=== PATIENT | male | born 1960 | race Caucasian/White ===

== ENCOUNTER 2020-11-22 14:23 | Emergency (ER) | payer OTHER ==
[2020-11-22 14:34] VITALS: BP 139/93; PULSE 86; RESP 16; TEMP 98.4
[2020-11-22] MEDS ORDERED: OFLOXACIN 0.3% OPHTH DROPS 5 ML BOTTLE RIGHT EAR STA (14:56)
--- NOTE | 2020-11-22 15:00 | ED ---
General Adult HPI - General Source: patient, RN notes reviewed Mode of arrival: ambulatory Limitations: no limitations <James Monroe - Last Filed: 11/22/20 15:14> <Jessica Acharya - Last Filed: 11/24/20 23:01> - General Chief complaint: ENT Stated complaint: R Ear Pain - History of Present Illness Initial comments: 60-year-old male with a past medical history of hyperlipidemia, seizure disorder presents to the emergency department for a chief complaint of "plugged right ear." Patient states his right ear has been plugged for about one month. States sometimes he feels a pop and will open up however then closes again. No significant pain. [facility] who [facility] and put him on an oral antibiotic that starts with a C. Patient thinks it was Keflex. Patient states that it did not seem to help. He [facility] but is awaiting a referral. Patient denies drainage from the ear. Denies fevers or chills. Denies pain in the mastoid area. Denies fevers or severe headache. No history of diabetes. Patient has no other complaints at this time including shortness of breath, chest pain, abdominal pain, nausea or vomiting, headache, or visual changes. (James Monroe) - Related Data Previous Rx's Medication Instructions Recorded Azithromycin [Zithromax Z-pack (6 250 mg PO DIRECTED #6 tab 11/22/20 tabs)] Ofloxacin 0.3% Ophth Soln [Ocuflox 10 drops RIGHT EAR DAILY 7 Days 11/22/20 Ophth Soln] #10 ml Allergies Allergy/AdvReac Type Severity Reaction Status Date / Time Penicillins Allergy Unknown Verified 11/22/20 14:34 Review of Systems ROS Other: All systems not noted in ROS Statement are negative. <James Monroe - Last Filed: 11/22/20 15:14> ROS Other: All systems not noted in ROS Statement are negative. <Jessica Acharya - Last Filed: 11/24/20 23:01> ROS Statement: Those systems with pertinent positive or pertinent negative responses have been documented in the HPI. Past Medical History Past Medical History: Hyperlipidemia, Seizure Disorder History of Any Multi-Drug Resistant Organisms: None Reported Past Surgical History: Orthopedic Surgery Past Psychological History: No Psychological Hx Reported Smoking Status: Current every day smoker Past Alcohol Use History: None Reported Past Drug Use History: None Reported <MabelJames Oscar - Last Filed: 11/22/20 15:14> General Exam Limitations: no limitations General appearance: alert, in no apparent distress Head exam: Present: atraumatic, normal inspection Eye exam: Present: normal appearance, PERRL, EOMI. Absent: scleral icterus ENT exam: Present: normal oropharynx. Absent: normal exam, TM's normal bilaterally (Difficult to fully evaluate tympanic membrane given slight purulent drainage and minimal edema.), normal external ear exam (No pain with traction of the pinna or palpation of the tragus. Patient does have slight purulent material noted on the floor of the external auditory canal. Patent external auditory canal. No mastoid pain. ) Neck exam: Present: normal inspection, full ROM. Absent: tenderness, meningismus Respiratory exam: Present: normal lung sounds bilaterally. Absent: respiratory distress, wheezes, rales, rhonchi, stridor Cardiovascular Exam: Present: regular rate, normal rhythm, normal heart sounds Neurological exam: Present: alert, oriented X3, other (Normal facial muscle symmetry.) <James Monroe P - Last Filed: 11/22/20 15:14> Course Vital Signs 11/22/20 14:31 Temperature 98.4 F Pulse Rate 86 Respiratory 16 Rate Blood Pressure 139/93 O2 Sat by Pulse 96 Oximetry Medical Decision Making <James Monroe P - Last Filed: 11/22/20 15:14> <Jessica Acharya - Last Filed: 11/24/20 23:01> - Medical Decision Making Vitals are stable, patient is afebrile. Complains of a plugging of his ear but denies any significant pain. No significant pain with traction of the pinna or palpation of the tragus. There is slight edema. No mastoid tenderness. No fevers. No facial nerve involvement. No history of diabetes. No trismus or neck stiffness. At this time patient has not been on eardrops. He'll be started on ofloxacin. He has a penicillin ALLERGY, will be started on azithromycin. Will be referred to ENT. He will return here for any worsening symptoms such as fevers or increased pain. I discussed this case with attending Dr. Acharya who agrees with this assessment and treatment plan. (James Monroe) I was available for consultation in the emergency department. The history and physical exam were done by the midlevel provider. I was consulted for this patients care. I reviewed the case with the midlevel provider and based on their presentation of the patient, I agree with the assessment, medical decision making and plan of care as documented. Chart was dictated using [employer] dictation software. Attempts were made to correct any dictation errors however some typographical errors may persist. Patient was seen during a national state of emergency due to the Covid-19 pandemic. (Jessica Acharya) Disposition Is patient prescribed a controlled substance at d/c from ED?: No Time of Disposition: 14:58 <James Monroe - Last Filed: 11/22/20 15:14> <Jessica Acharya - Last Filed: 11/24/20 23:01> Clinical Impression: Ear pain, right Disposition: HOME SELF-CARE Condition: Good Instructions (If sedation given, give patient instructions): Earache (ED) Additional Instructions: Please use medications as directed. Follow-up with your doctor in one to 2 days. Follow up with ENT as soon as possible. If you start to develop worsening symptoms or fevers or pain behind your ear return immediately to the emergency room. Prescriptions: Ofloxacin 0.3% Ophth Soln [Ocuflox Ophth Soln] 10 drops RIGHT EAR DAILY 7 Days #10 ml Azithromycin [Zithromax Z-pack (6 tabs)] 250 mg PO DIRECTED #6 tab Referrals: [facility],Clinic [Primary Care Provider] - 1-2 days Carlton Ramirez MD [STAFF PHYSICIAN] - 1-2 days
[2020-11-22] MEDS ORDERED: AZITHROMYCIN 500 MG TAB PO STA (15:01)
== END 2020-11-22 15:30 | disposition home or self-care (01) ==
LOC: EC 14:23
DX: H92.01 Otalgia, right ear (principal); F17.200 Nicotine dependence, unspecified, uncomplicated; Z88.0 Allergy status to penicillin
CPT/HCPCS: 99282

== ENCOUNTER 2021-06-06 21:50 | Inpatient (IN) | payer OTHER, MEDICARE ==
[2021-06-06 22:09] VITALS: RESP 18
--- NOTE | 2021-06-06 22:13 | ED ---
General Adult HPI - General Stated complaint: poss stroke Time Seen by Provider: 06/06/21 21:51 Source: patient, RN/MD, EMS, RN notes reviewed, old records reviewed Mode of arrival: EMS Limitations: no limitations - History of Present Illness Initial comments: Patient is a pleasant 61-year-old male presenting to the emergency Department as a transfer from [facility]. Patient was transferred with concern for stroke based on CT results. Patient was given NIH of 24 left facial weakness and aphasia. Patient believes he had a seizure. Patient states he has had seizures several times previously with weakness following this similar to what happened today. Patient does recall shaking earlier. Last known well was 9 AM. Symptoms were noticed by at 6 PM. Patient does have history of chronic brain injury. Patient also reportedly has history of aneurysm. Patient states he symptom-free at this time has no complaints. Patient denies ever having headache. Patient states he did have difficulty moving his arms and shaking with his arms and head earlier. - Related Data Previous Rx's Medication Instructions Recorded Azithromycin [Zithromax Z-pack (6 250 mg PO DIRECTED #6 tab 11/22/20 tabs)] Ofloxacin 0.3% Ophth Soln [Ocuflox 10 drops RIGHT EAR DAILY 7 Days 11/22/20 Ophth Soln] #10 ml Allergies Allergy/AdvReac Type Severity Reaction Status Date / Time Penicillins Allergy Unknown Verified 06/06/21 22:09 Review of Systems ROS Statement: Those systems with pertinent positive or pertinent negative responses have been documented in the HPI. ROS Other: All systems not noted in ROS Statement are negative. Constitutional: Denies: fever Eyes: Denies: eye pain ENT: Denies: ear pain Respiratory: Denies: cough Cardiovascular: Denies: chest pain Endocrine: Denies: fatigue Gastrointestinal: Denies: abdominal pain Genitourinary: Denies: dysuria Musculoskeletal: Denies: back pain Skin: Denies: rash Neurological: Reports: as per HPI, weakness (Resolved) Past Medical History Past Medical History: Hyperlipidemia, Seizure Disorder History of Any Multi-Drug Resistant Organisms: None Reported Past Surgical History: Orthopedic Surgery Past Psychological History: No Psychological Hx Reported Smoking Status: Current every day smoker Past Alcohol Use History: None Reported Past Drug Use History: None Reported General Exam Limitations: no limitations General appearance: alert, in no apparent distress Head exam: Present: atraumatic, normocephalic Eye exam: Present: normal appearance, PERRL, EOMI ENT exam: Present: normal oropharynx Neck exam: Present: normal inspection Respiratory exam: Present: normal lung sounds bilaterally Cardiovascular Exam: Present: regular rate, normal rhythm GI/Abdominal exam: Present: soft. Absent: tenderness Extremities exam: Present: normal inspection Neurological exam: Present: alert, CN II-XII intact. Absent: motor sensory deficit Expanded Neurological exam: Present: protecting the airway Patient oriented to: Present: person, place, time Speech: Present: fluid speech Cranial nerves: EOM's Intact: Normal Motor strength exam: RUE: 5, LUE: 5, RLE: 5, LLE: 5 Eye Response: (4) open spontaneously Motor Response: (6) obeys commands Verbal Response: (5) oriented Psychiatric exam: Present: normal affect, normal mood Skin exam: Present: normal color Course Vital Signs 06/06/21 06/06/21 21:52 22:51 Temperature 98.6 F Pulse Rate 75 71 Respiratory 18 18 Rate Blood Pressure 156/98 147/101 O2 Sat by Pulse 96 97 Oximetry EKG Findings - EKG Comments: EKG Findings:: Normal sinus rhythm with a rate of 62. UT 152. QRS 92. QT 418. QTC 424. Right axis. rsr v1. No acute ST change. Medical Decision Making - Medical Decision Making Patient reevaluated and unchanged. Patient updated on plan. Case was discussed with Dr. Alvarado, who will admit covering for this in the a patient. He did request calling Dr. Ramos. Case was also discussed with Dr. Morocho who does not feel patient needs additional medication added. He did question increasing the dose of patient's Lamictal however patient is not quite clear what dose he is on at this time. Patient is not a TPA candidate secondary to onset greater than 4.5 hours - Radiology Data Radiology results: report reviewed (CT angios shows 25% stenosis origin left internal carotid artery.) Disposition Clinical Impression: CVA (cerebral vascular accident) Disposition: ADMITTED IP TO THIS HOSP Is patient prescribed a controlled substance at d/c from ED?: No Referrals: [facility],Clinic [Primary Care Provider] - 1-2 days Decision Time: 22:53
[2021-06-06] MEDS ORDERED: ASPIRIN 325 MG TAB PO STA (22:53)
--- NOTE | 2021-06-06 22:53 | CT ---
EXAMINATION TYPE: CT angio head neck DATE OF EXAM: 06/06/2021 COMPARISON: None HISTORY: Neuro deficits. CT DLP: 553.5 mGycm Automated exposure control for dose reduction was used. CONTRAST: Performed with IV Contrast, patient injected with 65ml mL of Isovue 370. Images obtained from the aortic arch to the vertex of the brain with IV contrast. There are 3-D post processed images. There is normal branching pattern of the great vessels on the aortic arch. There is bilateral arteria l flow in the subclavian arteries. Aortic arch appears intact without evidence of aneurysm or dissect ion. There is arterial flow in the common internal and external carotid arteries bilaterally. There i s some minimal plaque at the posterior wall of the origin of the left internal carotid artery with 25 % stenosis. There is no evidence of any significant stenosis at the right carotid artery bifurcation. There is arterial flow in both vertebral arteries which are fairly symmetric. There is arterial flow in the vertebrobasilar artery system. There is no evidence of carotid or vertebral artery aneurysm o r dissection. There is arterial flow in the anterior middle and posterior cerebral arteries. There is no mass effec t. I see no evidence of intracranial arterial stenosis. There is no sign of intracranial aneurysm or neovascularity. There is normal enhancement of the venous sinuses. IMPRESSION: There is approximate 25% stenosis at the origin of the left internal carotid artery. No evidence of h emodynamic stenosis. No intracranial angiographic abnormality.
[2021-06-06] MEDS: SODIUM CHLORIDE 0.9% 1,000 ML IV SCH (23:02)
[2021-06-07] MEDS ORDERED: ACETAMINOPHEN TAB 325 MG TAB PO PRN (00:03)
[2021-06-07] MEDS ORDERED: ALPRAZolam 0.25 MG TAB PO PRN (00:04)
[2021-06-07] MEDS ORDERED: LORazepam 2 MG/ML INJ IV PRN (00:07)
[2021-06-07] MEDS: lamoTRIgine 25 MG TAB PO SCH ×2 (00:12→08:59)
[2021-06-07 08:04] LABS: HCT 48.1 % (39.0-53.0); HGB 16.6 gm/dL (13.0-17.5); MCH 31.6 pg (25.0-35.0); MCHC 34.5 g/dL (31.0-37.0); MCV 91.7 fL (80.0-100.0); Mean Platelet Volume 7.9; Platelet Count 210 k/uL (150-450); RBC 5.24 m/uL (4.30-5.90); RDW 13.7 % (11.5-15.5); WBC 8.2 k/uL (3.8-10.6)
[2021-06-07 08:18] LABS: Calcium 8.9 mg/dL (8.4-10.2)
[2021-06-07] MEDS: SODIUM CHLORIDE 0.9% 1,000 ML IV SCH (08:59)
[2021-06-07] MEDS ORDERED: ASPIRIN 325 MG TAB PO SCH (09:00)
[2021-06-07 09:38] VITALS: BP 118/72; PULSE 64; TEMP 98.9
--- NOTE | 2021-06-07 10:16 | P.CNNES ---
History of Present Illness Consult date: 06/07/21 Requesting physician: Tim Hinton Reason for Consult: stroke vs seizure History of Present Illness: This is a 61-year-old gentleman with medical history of seizure since 2012, small brain aneurysm, hyperlipidemia was transferred from [facility] to our facility on 9 06/06/2021 for concern for stroke based on CT results. According to patient he has a seizure since 2012 and yesterday on 06/06/2021 around 8:30 at night he was sitting in the chair and he felt weak and he felt with generalized weakness. He got up and then he all of a sudden because it is weakness she said the fell to the ground but he didn't lose any consciousness, urinary or bowel incontinence or tongue bite. His got him up to bed and a ll of a sudden he said that he was shaken of the right upper extremity and his head was shaken [id number] and then all of a sudden he looked the to the right with the right head deviation and he had a blank stare and he was not responding to his . He said the entire episode lasted for at least 20 minutes. He denies any urinary incontinence or bowel incontinence or tongue bite or soreness of the tongue. After the episode he felt it took some time for him to get back to baseline. He said that these are his classical seizures episode and he's been having these episodes since 2012. He denies of any fever, headaches associate with this. He is on Lamictal 50 mg 1 tablet twice a day and he said he is compliant with the medication. Per medical records it stated that patient had left-sided weakness and aphasia and as a result presented to the outside hospital but patient denies that and he stated he was jerking of right upper extremity and head then had blank stare and non-responsive. His NIH at outside hospital was 24. Patient stated that he had the seizure several times previ ously with weakness following got similar presentation. According to patient he follows up with a neurologist (Dr. Conley) he believes and he had the multiple seizure workup he had MRI of the brain, routine EEG, ambulatory EEG and the the EEGs did not show any seizures. Even the M but her EEG was not suggestive of seizures and he didn't have any seizures that at nighttime. He was told he had a small brain aneurysm but he's not sure where and he said that it didn't need any intervention. His last imaging the he said was a about a year ago. In the past he is to follow up at the [facility] regarding his seizures and they notified and the he also had seizures according to him. He said he was on 2 different medications in the past but does not recall the name but he said the Lamictal has been helping decrease the frequency of the seizures. He cannot tell me when his last seizure prior to this or how frequently his seizures are stated after Lamictal the been less frequent but continues to have them. Regarding his history he stated that was normal. He denies any family history of seizures. He denies of any alcohol, illicit drug use. He smokes 1 pack a day and he's been smoking for years. Also rest of home medication is the Imitrex 50 mg as needed, naproxen, Synthroid, vitamin D3, pravastatin 80 mg daily at bedtime, albuterol. Some other workup in the hospital consisted of: Initial vital signs was blood pressure of 156/98, heart rate of 75, respiratory of 18, temperature of 98.6 Fahrenheit oral and pulse ox of 96% room air. CT angiography of the head and neck was reported as there is approximately 25% stenosis at the origin of the left internal carotid artery. No evidence of hemodynamic stenosis. No intracranial angiographic abnormality. EKG is reported as normal sinus rhythm. Possible right ventricular hypertrophy. Abnormal EKG. CBC is unremarkable. Basic chemistry panel the only thing that was remarkable is a creatinine is 1.38 which is elevated and the chloride is slightly elevated on 108. I am not sure if the patient creatinine is baseline or is a more elevated than his baseline otherwise sodium glucose and calcium is within normal limits. Per the patient's nurse he is back to baseline and has not had any further seizures. Review of Systems Review of system: The 12 point system was reviewed and apparent positive and negative per HPI. Past Medical History Past Medical History: Hyperlipidemia, Seizure Disorder, Thyroid Disorder Additional Past Medical History / Comment(s): bells palsy, brain aneurysm, chronic migraines, first seizure 2012 History of Any Multi-Drug Resistant Organisms: None Reported Past Surgical History: Orthopedic Surgery Additional Past Surgical History / Comment(s): forearm surgery Past Anesthesia/Blood Transfusion Reactions: No Reported Reaction Past Psychological History: No Psychological Hx Reported Smoking Status: Current every day smoker Past Alcohol Use History: None Reported Past Drug Use History: None Reported - Past Family History Mother Family Medical History: CVA/TIA Father Family Medical History: Myocardial Infarction ([place]) Medications and Allergies Home Medications Medication Instructions Recorded Confirmed Type Albuterol Sulfate [Albuterol 2 puff PO RT-Q6H PRN 06/06/21 06/06/21 History Sulfate Hfa] Cholecalciferol [Vitamin D3 (25 50 mcg PO DAILY 06/06/21 06/06/21 History Mcg = 1000 Iu)] Levothyroxine Sodium [Synthroid] 125 mcg PO DAILY 06/06/21 06/06/21 History Pravastatin Sodium 80 mg PO HS 06/06/21 06/06/21 History SUMAtriptan succinate [Imitrex] 50 mg PO DAILY PRN 06/06/21 06/06/21 History lamoTRIgine [LaMICtal] 75 mg PO BID #60 tab 06/07/21 Rx Allergies Allergy/AdvReac Type Severity Reaction Status Date / Time Penicillins Allergy Unknown Verified 06/06/21 22:58 Physical Examination - Vital Signs Vital Signs: Vital Signs Temp Pulse Pulse Resp BP BP Pulse Ox 06/07/21 03:31 98.5 F 83 18 98/72 97 06/07/21 00:00 98.2 F 81 18 152/91 96 06/06/21 22:51 71 18 147/101 97 06/06/21 21:52 98.6 F 75 18 156/98 96 Intake and Output 06/06/21 06/07/21 06/07/21 22:59 06:59 14:59 Intake Total 480 520 Output Total 875 Balance -395 520 Intake: Oral 480 520 Output: Urine 875 Other: Voiding Method Toilet Urinal # Voids 1 Weight 79.379 kg 75.5 kg GENERAL: The patient is lying in bed and is not in acute distress. CHEST: The heart rate is regular rate rhythm. No murmurs to auscultation. No carotid bruit bilaterally. LUNG: Clear to auscultation bilaterally no wheezing noted throughout. Not labored breathing. ABDOMEN/GI: Bowel sounds present in all 4 quadrants. No tenderness to palpation throughout. NEUROLOGICAL: Higher mental function: The patient is awake, alert, oriented to self, place and time. Patient is following commands. No aphasia and no neglect. Cranial nerves: The pupils are round, equal and reactive to light and accommodation. Visual medellin are full to confrontation throughout. Extraocular movement is intact no nystagmus is noted. Facial sensation is normal to touch throughout. The facial strength is normal throughout. Hearing is normal bilaterally to hand rub. Tongue is midline and moved [id number] without any difficulty. No dysarthria is noted. Shoulder shrug is normal bilaterally. Motor: Gait is deferred. The strength is 5 over 5 throughout. Normal tone and bulk. Cerebellum: Normal finger to nose heel to sarkar bilaterally. Sensation: Sensation is normal to touch throughout. Reflexes (right/left): 2+ throughout. Plantars are downgoing bilaterally. Results - Laboratory Findings CBC and BMP: 06/07/21 07:17 06/07/21 07:17 Abnormal Lab Findings: Abnormal Labs 06/07/21 07:17 Chloride 108 H Creatinine 1.38 H Assessment and Plan Assessment: Break-through seizure (episode of right upper extremity and head jerking, right head deviation with blank stare and unresponsive) Seems focal motor with loss on consciousness seizure. Seems under-dose on medication History of epilepsy (since 2012) Reported small brain aneurysm and does not need intervention but does not recall where (but on CTA head and neck no aneurysm is reported) Kidney insuffiency (unsure if acute or chronic) History of hyperlipidemia Tobacco use (1PPD) for years Plan: I increased the Lamictal from 50mg 1 tab bid to 75mg 1 tab bid. If patient continues to have more seizure recommend increasing it to 100mg 1 tab bid (he currently refuses to be on 100mg bid). On seizure precaution and pads. He refuses to have any further imaging such as MRI Brain or EEG as inpatient and wants it as outpatient (Since he has hx of seizures, the routine EEG will not change management director). Patient was notified to get these done as outpatient and follow-up with his neurologist within 1-2 weeks. Lamictal levels are ordered by ED team and is pending. The patient was given ASA 325mg once and was started on ASA 325mg daily. From neurological stand point his presentation sound like seizure and not stroke and will defer the need of ASA to primary team. Continue Pravastatin 80mg qhs (home dose). PT, OT and TEMPERATURE LOGGING OPERATOR are consulted. Q4 hours neuro-checks Continue cardiac monitoring. Will defer the rest of medical management to the primary team. Upon discharge the patient needs to follow-up with a neurologist as outpatient within 1-2 weeks. The patient was notified that he cannot drive for 6 months unless he is seizure free per [place] DMV. He is to avoid heights, using heavy machinary or swim unassisted. If the patient continues to have no further events by this afternoon than he is clear from neurological stand point. Thank you for the consultation. Michael Tiwari MD Neuro-Hospitalist. Time with Patient: Greater than 30
--- NOTE | 2021-06-07 12:20 | P.HPIM ---
History of Present Illness Patient is a pleasant 61-year-old male came in with complaints of seizure-like activity in the right upper extremity and eyes rolling blank stare unresponsiveness followed by post ictal state the whole episode lasted for 20 minutes. Patient was evaluated for cerebrovascular accident with a CT angios the head and neck as well as CT of the head all of which are negative. Patient had history of seizures and patient is on Lamictal 50 mg twice a day. Patient didn't have any bowel or bladder incontinence or tongue biting. Patient appears to have had a seizure rather than several vascular accident because of which no further workup regarding seeking [facility] is being done. Patient has known seizure history because of which MRIs not being obtained and patient doesn't want any more imaging patient doesn't want undergo EEG either. Patient follows up with a neurologist as an outpatient. Patient was evaluated by neurology here they recommended increasing her dose of Lamictal dose of Lamictal will be increased and patient will be discharged today. Patient doesn't have any fever chills patient doesn't have any nausea vomiting. Patient denied any migraine history. And had 25% stenosis at the origin of left internal carotid artery on CT angios the head. Patient does smoke does have mild expiratory wheezing on exam . REVIEW OF SYSTEMS: CONSTITUTIONAL: No fever, no malaise, no fatigue. HEENT: No recent visual problems or hearing problems. Denied any sore throat. CARDIOVASCULAR: No chest pain, orthopnea, PND, no palpitations, no syncope. PULMONARY: No shortness of breath, no cough, no hemoptysis. GASTROINTESTINAL: No diarrhea, no nausea, no vomiting, no abdominal pain. NEUROLOGICAL: No headaches, no weakness, no numbness. HEMATOLOGICAL: Denies any bleeding or petechiae. GENITOURINARY: Denies any burning micturition, frequency, or urgency. MUSCULOSKELETAL/RHEUMATOLOGICAL: Denies any joint pain, swelling, or any muscle pain. ENDOCRINE: Denies any polyuria or polydipsia. The rest of the 14-point review of systems is negative. PHYSICAL EXAMINATION: GENERAL: The patient is alert and oriented x3, not in any acute distress. Well developed, well nourished. HEENT: Pupils are round and equally reacting to light. EOMI. No scleral icterus. No conjunctival pallor. Normocephalic, atraumatic. No pharyngeal erythema. No thyromegaly. CARDIOVASCULAR: S1 and S2 present. No murmurs, rubs, or gallops. PULMONARY: Expiratory wheezing on exam ABDOMEN: Soft, nontender, nondistended, normoactive bowel sounds. No palpable organomegaly. MUSCULOSKELETAL: No joint swelling or deformity. EXTREMITIES: No cyanosis, clubbing, or pedal edema. NEUROLOGICAL: Gross neurological examination did not reveal any focal deficits. SKIN: No rashes. Assessment and plan -Breakthrough seizure: Increasing the dose of Lamictal patient will be discharged today as patient doesn't want any more imaging or EEG if. We will increase the dose of Lamictal to 75 mg twice a day. No evidence of cerebrovascular accident -Possible COPD undiagnosed nicotine cessation counseling was provided and patient will be discharged on inhaled steroids and albuterol as needed -Hyperlipidemia -Hypothyroidism Patient will continue his home medications for above-mentioned chronic medical problems. Patient will be discharged today. DVT prophylaxis: Past Medical History Past Medical History: Hyperlipidemia, Seizure Disorder, Thyroid Disorder Additional Past Medical History / Comment(s): bells palsy, brain aneurysm, chronic migraines, first seizure 2012 History of Any Multi-Drug Resistant Organisms: None Reported Past Surgical History: Orthopedic Surgery Additional Past Surgical History / Comment(s): forearm surgery Past Anesthesia/Blood Transfusion Reactions: No Reported Reaction Past Psychological History: No Psychological Hx Reported Smoking Status: Current every day smoker Past Alcohol Use History: None Reported Past Drug Use History: None Reported - Past Family History Mother Family Medical History: CVA/TIA Father Family Medical History: Myocardial Infarction ([place]) Medications and Allergies Home Medications Medication Instructions Recorded Confirmed Type Albuterol Sulfate [Albuterol 2 puff PO RT-Q6H PRN 06/06/21 06/06/21 History Sulfate Hfa] Cholecalciferol [Vitamin D3 (25 50 mcg PO DAILY 06/06/21 06/06/21 History Mcg = 1000 Iu)] Levothyroxine Sodium [Synthroid] 125 mcg PO DAILY 06/06/21 06/06/21 History Pravastatin Sodium 80 mg PO HS 06/06/21 06/06/21 History SUMAtriptan succinate [Imitrex] 50 mg PO DAILY PRN 06/06/21 06/06/21 History Albuterol Inhaler [Ventolin Hfa 2 puff INHALATION RT-QID PRN #1 06/07/21 Rx Inhaler] inhaler Budesonide-Formot 160-4.5 Mcg 2 puff INHALATION BID #1 inhaler 06/07/21 Rx [Symbicort 160-4.5 Mcg Inhaler] lamoTRIgine [LaMICtal] 75 mg PO BID #60 tab 06/07/21 Rx Allergies Allergy/AdvReac Type Severity Reaction Status Date / Time Penicillins Allergy Unknown Verified 06/06/21 22:58 Physical Exam Vitals: Vital Signs Temp Pulse Pulse Resp BP BP Pulse Ox 06/07/21 08:00 98.9 F 64 18 118/72 95 06/07/21 03:31 98.5 F 83 18 98/72 97 06/07/21 00:00 98.2 F 81 18 152/91 96 06/06/21 22:51 71 18 147/101 97 06/06/21 21:52 98.6 F 75 18 156/98 96 Intake and Output 06/06/21 06/07/21 06/07/21 22:59 06:59 14:59 Intake Total 480 520 Output Total 875 Balance -395 520 Intake: Oral 480 520 Output: Urine 875 Other: Voiding Method Toilet Urinal # Voids 1 Weight 79.379 kg 75.5 kg Results CBC & Chem 7: 06/07/21 07:17 06/07/21 07:17 Labs: Abnormal Lab Results - Last 24 Hours (Table) 06/07/21 Range/Units 07:17 Chloride 108 H (98-107) mmol/L Creatinine 1.38 H (0.66-1.25) mg/dL Thrombosis Risk Factor Assmnt - Choose All That Apply Each Factor Represents 1 point: Age 41-60 years Thrombosis Risk Factor Assessment Total Risk Factor Score: 1 Thrombosis Risk Factor Assessment Level: Low Risk
--- NOTE | 2021-06-07 12:21 | P.DS ---
Providers Date of admission: 06/06/21 22:53 Attending physician: Patricia Alvarado Consults: 06/06/21 22:54 Consult Physician Urgent Consulting Provider: Camden Villarreal Consult Reason/Comments: cva vs sz Do you want consulting provider notified?: Already Contacted Primary care physician: [facility] Course: Please refer to my history of present illness for further details Plan - Discharge Summary Discharge Rx Participant: No New Discharge Prescriptions: New lamoTRIgine [LaMICtal] 75 mg PO BID #60 tab Budesonide-Formot 160-4.5 Mcg [Symbicort 160-4.5 Mcg Inhaler] 2 puff INHALATION BID #1 inhaler Albuterol Inhaler [Ventolin Hfa Inhaler] 2 puff INHALATION RT-QID PRN #1 inhaler PRN Reason: Shortness Of Breath Or Wheezing Continue SUMAtriptan succinate [Imitrex] 50 mg PO DAILY PRN PRN Reason: Migraine Headache Levothyroxine Sodium [Synthroid] 125 mcg PO DAILY Cholecalciferol [Vitamin D3 (25 Mcg = 1000 Iu)] 50 mcg PO DAILY Albuterol Sulfate [Albuterol Sulfate Hfa] 2 puff PO RT-Q6H PRN PRN Reason: Shortness Of Breath Pravastatin Sodium 80 mg PO HS Discontinued Naproxen 500 mg PO DAILY PRN PRN Reason: Pain lamoTRIgine [LaMICtal] 50 mg PO BID Discharge Medication List Albuterol Sulfate [Albuterol Sulfate Hfa] 2 puff PO RT-Q6H PRN 06/06/21 [History] Cholecalciferol [Vitamin D3 (25 Mcg = 1000 Iu)] 50 mcg PO DAILY 06/06/21 [History] Levothyroxine Sodium [Synthroid] 125 mcg PO DAILY 06/06/21 [History] Pravastatin Sodium 80 mg PO HS 06/06/21 [History] SUMAtriptan succinate [Imitrex] 50 mg PO DAILY PRN 06/06/21 [History] Albuterol Inhaler [Ventolin Hfa Inhaler] 2 puff INHALATION RT-QID PRN #1 inhaler 06/07/21 [Rx] Budesonide-Formot 160-4.5 Mcg [Symbicort 160-4.5 Mcg Inhaler] 2 puff INHALATION BID #1 inhaler 06/07/21 [Rx] lamoTRIgine [LaMICtal] 75 mg PO BID #60 tab 06/07/21 [Rx] Follow up Appointment(s)/Referral(s): Bee Conley MD [Medical Doctor] - 1 Week (Please call to make a follow-up appointment.) [facility],Clinic [Primary Care Provider] - 06/08/21 8:00 am Patient Instructions/Handouts: How to Stop Smoking (DC), Epilepsy (DC) Activity/Diet/Wound Care/Special Instructions: No heights, no heavy machinery, no swimming unsupervised No driving for 6 months/DMV Patient to see his neurologist in 1-2 weeks, will need outpatient EEG/MRI Discharge Disposition: HOME SELF-CARE
--- NOTE | 2021-06-07 13:00 | ECHOF ---
Referral Reason:Thrombus MEASUREMENTS -------- HEIGHT: 180.3 cm WEIGHT: 75.3 kg BP: 98/72 RVIDd: 3.5 cm (< 3.3) IVSd: 1.2 cm (0.6 - 1.1) LVIDd: 3.8 cm (3.9 - 5.3) LVPWd: 1.1 cm (0.6 - 1.1) IVSs: 1.9 cm LVIDs: 2.7 cm LVPWs: 1.6 cm LA Diam: 3.0 cm (2.7 - 3.8) LAESV Index (A-L): 23.41 ml/m Ao Diam: 3.0 cm (2.0 - 3.7) AV Cusp: 2.2 cm (1.5 - 2.6) MV EXCURSION: 22.169 mm (> 18.000) MV EF SLOPE: 146 mm/s (70 - 150) EPSS: 0.3 cm MV E João: 0.73 m/s MV DecT: 223 ms MV A João: 0.57 m/s MV E/A Ratio: 1.29 FINDINGS -------- Sinus rhythm. This was a technically adequate study. The left ventricular size is normal. There is borderline concentric left ventricular hypertrophy. Overall left ventricular systolic function is normal with, an EF between 55 - 60 %. The right ventricle is mildly enlarged. Normal LA size by volume 22+/-6 ml/m2. The right atrial size is normal. Interatrial and interventricular septum intact. The aortic valve is trileaflet, and appears structurally normal. No aortic stenosis or regurgitation. The mitral valve is normal. There is trace to mild mitral regurgitation. The tricuspid valve appears structurally normal. Mild tricuspid regurgitation present. Trace/mild (physiologic) pulmonic regurgitation. The aortic root size is normal. Normal inferior vena cava with normal inspiratory collapse consistent with estimated right atrial pre ssure of 5 mmHg. There is no pericardial effusion. CONCLUSIONS -------- 1. There is borderline concentric left ventricular hypertrophy. 2. Overall left ventricular systolic function is normal with, an EF between 55 - 60 %. 3. The right ventricle is mildly enlarged. 4. Normal LA size by volume 22+/-6 ml/m2. 5. The aortic valve is trileaflet, and appears structurally normal. No aortic stenosis or regurgitati on. 6. There is trace to mild mitral regurgitation. 7. Mild tricuspid regurgitation present. 8. Trace/mild (physiologic) pulmonic regurgitation. 9. There is no pericardial effusion. YARD CALLER: Karely Mcdermott RDCS
[2021-06-07 16:38] LABS: Chol/HDL Ratio 8.43; LDL Cholesterol,Calculated 99.6 mg/dL (0.0-131.0); VLDL Calculation 56.4 mg/dL (5.00-40.00)
[2021-06-07] MEDS ORDERED: lamoTRIgine 25 MG TAB PO SCH (21:00)
== END 2021-06-07 12:28 | disposition home or self-care (01) | DRG 101 ==
LOC: EC 21:50 → 3SCARD 22:53
PROVIDERS: ADMIT Hospitalist; ATTEND Hospitalist
DX: G40.909 Epilepsy, unspecified, not intractable, without status epilepticus (principal); E03.9 Hypothyroidism, unspecified; E78.5 Hyperlipidemia, unspecified; F17.210 Nicotine dependence, cigarettes, uncomplicated; I65.22 Occlusion and stenosis of left carotid artery; Z79.51 Long term (current) use of inhaled steroids; Z79.890 Hormone replacement therapy; Z79.899 Other long term (current) drug therapy; Z82.49 Family history of ischemic heart disease and other diseases of the circulatory system; Z86.79 Personal history of other diseases of the circulatory system
CPT/HCPCS: 70496; 70498; 80048; 80061; 80175; 85027; 93005; 93306; 99285

== ENCOUNTER → 2021-12-08 | Outpatient (CLI) | payer OTHER ==
--- NOTE | 2021-12-08 08:54 | US ---
EXAMINATION TYPE: US duplex aorta DATE OF EXAM: 12/08/2021 COMPARISON: NONE CLINICAL HISTORY: Z87.891 PERSONAL HISTORY OF NICOTINE DEPENDENCE. Family history of AAA EXAM MEASUREMENTS: Abdominal Aorta: Proximal: obscured by overlying midline bowel gas Mid: 1.9 x 1.9cm Distal: 1.8 x 1.9cm Right Iliac: 0.8 x 1.2cm Left Iliac: 0.8 x 1.0cm No AAA seen IMPRESSION: No evidence for abdominal aortic aneurysm.
== END | disposition home or self-care (01) ==
LOC: RADUSWWP 07:55
PROVIDERS: ATTEND Family Medicine
DX: Z13.6 Encounter for screening for cardiovascular disorders (principal); Z87.891 Personal history of nicotine dependence; Z82.49 Family history of ischemic heart disease and other diseases of the circulatory system
CPT/HCPCS: 93979

== ENCOUNTER 2024-07-21 11:39 | Emergency (ER) | payer OTHER ==
[2024-07-21 11:53] VITALS: TEMP 98.3
--- NOTE | 2024-07-21 12:19 | ED ---
General Adult HPI - General Chief complaint: Shortness of Breath Stated complaint: Afib Time Seen by Provider: 07/21/24 12:06 Source: patient, EMS Mode of arrival: EMS Limitations: no limitations - History of Present Illness Initial comments: This patient is a 64-year-old man who arrives to have evaluation for lightheadedness, fatigue, generalized weakness. The patient states that he noted this came on while he was attending tenriism. The symptoms were worse when he was attempting to get up and walk. Patient also did have some palpitations. At the end of the service he again experienced symptoms when he was up and trying to walk. EMS was called and transported the patient here. Per the EMS report the patient appeared to be in atrial fibrillation. Patient denies history of previous A-fib. Denies chest pain. Onset/Timin -: hour(s) Location: chest Severity scale (1-10): 0 Consistency: now resolved Improves with: none Worsens with: none Associated Symptoms: shortness of breath, weakness Treatments Prior to Arrival: none - Related Data Home Medications Medication Instructions Recorded Confirmed Albuterol Sulfate [Albuterol 2 puff PO RT-Q6H PRN 06/06/21 06/06/21 Sulfate Hfa] Cholecalciferol [Vitamin D3 (25 50 mcg PO DAILY 06/06/21 06/06/21 Mcg = 1000 Iu)] Levothyroxine Sodium [Synthroid] 125 mcg PO DAILY 06/06/21 06/06/21 Pravastatin Sodium 80 mg PO HS 06/06/21 06/06/21 SUMAtriptan succinate [Imitrex] 50 mg PO DAILY PRN 06/06/21 06/06/21 Previous Rx's Medication Instructions Recorded Albuterol Inhaler [Ventolin Hfa 2 puff INHALATION RT-QID PRN #1 06/07/21 Inhaler] inhaler Budesonide-Formot 160-4.5 Mcg 2 puff INHALATION BID #1 inhaler 06/07/21 [Symbicort 160-4.5 Mcg Inhaler] lamoTRIgine [LaMICtal] 75 mg PO BID #60 tab 06/07/21 Apixaban [Eliquis] 5 mg PO BID #40 tab 07/21/24 Diltiazem Oral [Cardizem Oral] 30 mg PO QID #60 tab 07/21/24 Allergies Allergy/AdvReac Type Severity Reaction Status Date / Time Penicillins Allergy Unknown Verified 07/21/24 11:53 Review of Systems ROS Statement: Those systems with pertinent positive or pertinent negative responses have been documented in the HPI. ROS Other: All systems not noted in ROS Statement are negative. Constitutional: Reports: weakness. Denies: fever, chills Eyes: Denies: vision change Respiratory: Reports: dyspnea. Denies: cough, wheezes Cardiovascular: Reports: palpitations. Denies: chest pain, orthopnea, edema, syncope Gastrointestinal: Denies: abdominal pain, nausea, vomiting, melena, hematochezia Musculoskeletal: Denies: back pain Skin: Denies: rash Neurological: Denies: headache, weakness, numbness Past Medical History Past Medical History: Hyperlipidemia, Seizure Disorder, Thyroid Disorder Additional Past Medical History / Comment(s): bells palsy, brain aneurysm, chronic migraines, first seizure 2012 History of Any Multi-Drug Resistant Organisms: None Reported Past Surgical History: Orthopedic Surgery Additional Past Surgical History / Comment(s): forearm surgery Past Anesthesia/Blood Transfusion Reactions: No Reported Reaction Past Psychological History: No Psychological Hx Reported Smoking Status: Current every day smoker Past Alcohol Use History: None Reported Past Drug Use History: None Reported - Past Family History Mother Family Medical History: CVA/TIA Father Family Medical History: Myocardial Infarction ([place]) General Exam Limitations: no limitations General appearance: alert, in no apparent distress Head exam: Present: atraumatic, normocephalic Eye exam: Present: normal appearance. Absent: scleral icterus, conjunctival injection ENT exam: Present: normal oropharynx Neck exam: Present: normal inspection Respiratory exam: Present: wheezes. Absent: respiratory distress, rales, rhonchi, stridor, accessory muscle use, decreased breath sounds, prolonged expiratory Cardiovascular Exam: Present: tachycardia, irregular rhythm, normal heart sounds. Absent: systolic murmur, diastolic murmur, rubs, gallop GI/Abdominal exam: Present: soft. Absent: distended, tenderness, guarding, rebound, rigid, mass Extremities exam: Present: normal inspection, normal capillary refill. Absent: pedal edema, calf tenderness Back exam: Present: normal inspection. Absent: CVA tenderness (R), CVA tenderness (L) Neurological exam: Present: alert Skin exam: Present: warm, dry, intact, normal color. Absent: rash Course Vital Signs 07/21/24 07/21/24 07/21/24 11:41 12:49 14:23 Temperature 98.3 F Pulse Rate 98 116 H 86 Respiratory 20 18 18 Rate Blood Pressure 102/83 90/74 109/86 O2 Sat by Pulse 96 95 95 Oximetry 07/21/24 15:48 Temperature Pulse Rate 93 Respiratory 20 Rate Blood Pressure 108/74 O2 Sat by Pulse 95 Oximetry EKG Findings - EKG Results: EKG: interpreted by ERMD, normal axis, normal ST/T (100 bpm) EKG shows: atrial fibrillation (Rate 100 bpm) - Blocks, [place], Hypertrophy, ST Abn: AV and intraventricular conduction: right bundle branch block (fixed/intermittent, complete/incomplete) Medical Decision Making - Medical Decision Making The patient had chest x-ray that I interpreted as negative for acute infiltrate, pneumothorax, congestive heart failure. There is hyperinflation consistent with COPD Was pt. sent in by a medical professional or institution (, AUGUST, RECREATION ATTENDANT SUPERVISOR, urgent care, hospital, or intermediate...) When possible be specific @ -[No] Did you speak to anyone other than the patient for history (EMS, parent, family, police, friend...)? What history was obtained from this source @ -[No] Did you review nursing and triage notes (agree or disagree)? Why? @ -[I reviewed and agree with nursing and triage notes] Were old charts reviewed (outside hosp., previous admission, EMS record, old EKG, old radiological studies, urgent care reports/EKG's, intermediate records)? Report findings @ -[No old charts were reviewed] Differential Diagnosis (chest pain, altered mental status, abdominal pain women, abdominal pain men, vaginal bleeding, weakness, fever, dyspnea, syncope, headache, dizziness, GI bleed, back pain, seizure, CVA, palpatations, mental health, musculoskeletal)? @ -[Differential Weakness: Hypoglycemia, shock, sepsis, hyponatremia, anemia, infection, [place], ETOH, adverse medicine reaction, overdose, stroke, this is not meant to be an all-inclusive list. EKG interpreted by me (3pts min.). @ -[I interpreted as above] X-rays interpreted by me (1pt min.). @ -[I interpreted as above CT interpreted by me (1pt min.). @ -[None done] U/S interpreted by me (1pt. min.). @ -[None done] What testing was considered but not performed or refused? (CT, X-rays, U/S, labs)? Why? @ -[None] What meds were considered but not given or refused? Why? @ -[None] Did you discuss the management of the patient with other professionals (professionals i.e. , PA, RECREATION ATTENDANT SUPERVISOR, lab, RT, psych nurse, geriatric social worker, turner and former automatic, teacher, armoured corps officer, hospice case manager)? Give summary @ -[I had discussed case with admitting physician and then patient decided he would go home and follow with cardiology as outpatient Was smoking cessation discussed for >3mins.? @ -[No] Was critical care preformed (if so, how long)? @ -[No] Were there social determinants of health that impacted care today? How? (Homelessness, low income, unemployed, alcoholism, drug addiction, transportation, low edu. Level, literacy, decrease access to med. care, long term, rehab)? @ -[No] Was there de-escalation of care discussed even if they declined (Discuss DNR or withdrawal of care, Hospice)? DNR status @ -[No] What co-morbidities impacted this encounter? (DM, HTN, Smoking, COPD, CAD, Cancer, CVA, ARF, Chemo, Hep., AIDS, mental health diagnosis, sleep apnea, morbid obesity)? @ -[COPD Was patient admitted / discharged? Hospital course, mention meds given and route, prescriptions, significant lab abnormalities, going to OR and other pertinent info. @ -[Patient is 64-year-old man presenting with fatigue, dyspnea, palpitations and found to have what appears to be new onset atrial fibrillation. The rate initially elevated. I discussed the findings with the patient and was working on admitting him with the patient informing that he wanted to go home and follow-up with the tire building supervisor if this was possible. I discussed the importance of anticoagulation to reduce risk of stroke and also discussed further return parameters. Discussed appropriate follow-up with cardiology. Patient is given a starter pack voucher for Eliquis Undiagnosed new problem with uncertain prognosis? @ -[No] Drug Therapy requiring intensive monitoring for toxicity (Heparin, Nitro, Insulin, Cardizem)? @ -[No] Were any procedures done? @ -[No] Diagnosis/symptom? @ -[Acute new onset atrial fibrillation Acute, or Chronic, or Acute on Chronic? @ -[Acute Uncomplicated (without systemic symptoms) or Complicated (systemic symptoms)? @ -[default] Side effects of treatment? @ -[No] Exacerbation, Progression, or Severe Exacerbation? @ -[No] Poses a threat to life or bodily function? How? (Chest pain, [place], [place], pneumonia, PE, COPD, DKA, ARF, appy, cholecystitis, CVA, Diverticulitis, Homicidal, Suicidal, threat to staff... and all critical care pts) @ -[Yes, patient to have close follow-up - Lab Data Result diagrams: 07/21/24 12:34 07/21/24 12:34 Lab Results 07/21/24 07/21/24 07/21/24 Range/Units 12:34 12:34 12:34 WBC 8.9 (3.8-10.6) k/uL RBC 5.40 (4.30-5.90) m/uL Hgb 16.6 (13.0-17.5) gm/dL Hct 51.1 (39.0-53.0) % MCV 94.6 (80.0-100.0) fL MCH 30.7 (25.0-35.0) pg MCHC 32.5 (31.0-37.0) g/dL RDW 13.8 (11.5-15.5) % Plt Count 255 (150-450) k/uL MPV 8.0 Neutrophils % 61 % Lymphocytes % 24 % Monocytes % 10 % Eosinophils % 2 % Basophils % 1 % Neutrophils # 5.4 (1.3-7.7) k/uL Lymphocytes # 2.2 (1.0-4.8) k/uL Monocytes # 0.9 (0-1.0) k/uL Eosinophils # 0.2 (0-0.7) k/uL Basophils # 0.0 (0-0.2) k/uL PT 11.0 (10.0-12.5) sec INR 1.0 (<1.2) APTT 25.2 (22.0-30.0) sec Sodium 137 (137-145) mmol/L Potassium 4.3 (3.5-5.1) mmol/L Chloride 106 (98-107) mmol/L Carbon Dioxide 25 (22-30) mmol/L Anion Gap 6 mmol/L BUN 13 (9-20) mg/dL Creatinine 1.65 H (0.66-1.25) mg/dL Est GFR (CKD-EPI)AfAm 51 (>60 ml/min/1.73 sqM) Est GFR (CKD-EPI)NonAf 44 (>60 ml/min/1.73 sqM) Glucose 81 (74-99) mg/dL Plasma Lactic Acid Clark (0.7-2.0) mmol/L Calcium 9.4 (8.4-10.2) mg/dL Magnesium 2.1 (1.6-2.3) mg/dL Total Bilirubin 0.7 (0.2-1.3) mg/dL AST 28 (17-59) U/L ALT 12 (4-49) U/L Alkaline Phosphatase 93 (38-126) U/L Troponin I (0.000-0.034) ng/mL Total Protein 6.5 (6.3-8.2) g/dL Albumin 4.0 (3.5-5.0) g/dL 07/21/24 07/21/24 Range/Units 12:34 12:34 WBC (3.8-10.6) k/uL RBC (4.30-5.90) m/uL Hgb (13.0-17.5) gm/dL Hct (39.0-53.0) % MCV (80.0-100.0) fL MCH (25.0-35.0) pg MCHC (31.0-37.0) g/dL RDW (11.5-15.5) % Plt Count (150-450) k/uL MPV Neutrophils % % Lymphocytes % % Monocytes % % Eosinophils % % Basophils % % Neutrophils # (1.3-7.7) k/uL Lymphocytes # (1.0-4.8) k/uL Monocytes # (0-1.0) k/uL Eosinophils # (0-0.7) k/uL Basophils # (0-0.2) k/uL PT (10.0-12.5) sec INR (<1.2) APTT (22.0-30.0) sec Sodium (137-145) mmol/L Potassium (3.5-5.1) mmol/L Chloride (98-107) mmol/L Carbon Dioxide (22-30) mmol/L Anion Gap mmol/L BUN (9-20) mg/dL Creatinine (0.66-1.25) mg/dL Est GFR (CKD-EPI)AfAm (>60 ml/min/1.73 sqM) Est GFR (CKD-EPI)NonAf (>60 ml/min/1.73 sqM) Glucose (74-99) mg/dL Plasma Lactic Acid Clark 1.1 (0.7-2.0) mmol/L Calcium (8.4-10.2) mg/dL Magnesium (1.6-2.3) mg/dL Total Bilirubin (0.2-1.3) mg/dL AST (17-59) U/L ALT (4-49) U/L Alkaline Phosphatase (38-126) U/L Troponin I <0.012 (0.000-0.034) ng/mL Total Protein (6.3-8.2) g/dL Albumin (3.5-5.0) g/dL Disposition Clinical Impression: Atrial fibrillation Disposition: HOME SELF-CARE Condition: Good Instructions (If sedation given, give patient instructions): A-fib (Atrial Fibrillation) (ED) Prescriptions: Diltiazem Oral [Cardizem Oral] 30 mg PO QID #60 tab Apixaban [Eliquis] 5 mg PO BID #40 tab Is patient prescribed a controlled substance at d/c from ED?: No Referrals: [facility],Clinic [Primary Care Provider] - 1-2 days
[2024-07-21 13:00] LABS: Basophils % (A) 1 %; Eosinophils # (A) 0.2 k/uL (0-0.7); Eosinophils % (A) 2 %; HCT 51.1 % (39.0-53.0); HGB 16.6 gm/dL (13.0-17.5); Lymphocytes # (A) 2.2 k/uL (1.0-4.8); Lymphocytes % (A) 24 %; MCH 30.7 pg (25.0-35.0); MCHC 32.5 g/dL (31.0-37.0); MCV 94.6 fL (80.0-100.0); Monocytes # (A) 0.9 k/uL (0-1.0); Monocytes % (A) 10 %; Neutrophils # (A) 5.4 k/uL (1.3-7.7); Neutrophils % (A) 61 %; Platelet Count 255 k/uL (150-450); RDW 13.8 % (11.5-15.5); WBC 8.9 k/uL (3.8-10.6)
[2024-07-21 13:18] LABS: ALT 12 U/L (4-49); African American GFR (CKD) 51 (>60 ml/min/1.73 sqM); Anion Gap 6 mmol/L; Blood Urea Nitrogen 13 mg/dL (9-20); Calcium 9.4 mg/dL (8.4-10.2); Carbon Dioxide 25 mmol/L (22-30); Chloride 106 mmol/L (98-107); Glucose 81 mg/dL (74-99); Non-African American GFR(CKD) 44 (>60 ml/min/1.73 sqM); Sodium 137 mmol/L (137-145); Total Bilirubin 0.7 mg/dL (0.2-1.3); Total Protein 6.5 g/dL (6.3-8.2)
[2024-07-21 13:20] LABS: Partial Thromboplastin Time 25.2 sec (22.0-30.0)
[2024-07-21 13:31] LABS: Magnesium 2.1 mg/dL (1.6-2.3); Potassium 4.3 mmol/L (3.5-5.1)
[2024-07-21 13:32] LABS: AST 28 U/L (17-59); Alkaline Phosphatase 93 U/L (38-126)
--- NOTE | 2024-07-21 13:36 | XR ---
EXAMINATION TYPE: XR chest 2V DATE OF EXAM: 07/21/2024 COMPARISON: None HISTORY: 64 year-old male shortness of breath, difficulty breathing TECHNIQUE: PA and lateral views FINDINGS: The cardiomediastinal silhouette, aorta, and pulmonary vasculature are within normal limits. Mild per ibronchial cuffing. Mild hyperinflation. Otherwise, lungs and pleural spaces are clear. IMPRESSION: Correlate for underlying COPD. Possible superimposed bronchitis. Otherwise, no acute process seen. [facility], , 07/21/2024 1:34 PM
[2024-07-21] MEDS: SODIUM CHLORIDE 0.9% 500 ML 500 ML IV STA (15:39)
[2024-07-21] MEDS: ASPIRIN 81 MG PO STA (15:42)
[2024-07-21] MEDS: DILTIAZEM ORAL 30 MG TAB PO STA (15:43)
[2024-07-21] MEDS: ENOXAPARIN 80 MG/0.8 ML SYRINGE SQ STA (15:45)
[2024-07-21 15:48] VITALS: BP 108/74; PULSE 93; RESP 20
== END 2024-07-21 16:07 | disposition home or self-care (01) ==
LOC: EC 11:39
DX: I48.91 Unspecified atrial fibrillation (principal)
CPT/HCPCS: 36415; 71046; 80053; 83605; 83735; 84484; 85025; 85610; 85730; 93005; 99285

== ENCOUNTER 2024-08-02 18:53 | Emergency (ER) | payer OTHER ==
[2024-08-02 19:01] VITALS: TEMP 98.1
--- NOTE | 2024-08-02 19:10 | ED ---
General Adult HPI - General Chief complaint: Weakness Stated complaint: Weakness Time Seen by Provider: 08/02/24 19:04 Source: patient, EMS, RN notes reviewed, old records reviewed Mode of arrival: EMS Limitations: no limitations - History of Present Illness Initial comments: This is a 64-year-old male to the ER for evaluation of weakness today. Today patient presents for overall generalized weakness severe history of A-fib states he was feeling similar to this when he was diagnosed with atrial fibrillation. He has no fevers no travels no sick contacts no other complaints -: hour(s) Radiation: non-radiation Severity scale (1-10): 4 Consistency: constant Improves with: none Worsens with: none Associated Symptoms: confusion, loss of appetite, malaise, nausea/vomiting, w eakness Treatments Prior to Arrival: none - Related Data Home Medications Medication Instructions Recorded Confirmed Albuterol Sulfate [Albuterol 2 puff PO RT-Q6H PRN 06/06/21 06/06/21 Sulfate Hfa] Cholecalciferol [Vitamin D3 (25 50 mcg PO DAILY 06/06/21 06/06/21 Mcg = 1000 Iu)] Levothyroxine Sodium [Synthroid] 125 mcg PO DAILY 06/06/21 06/06/21 Pravastatin Sodium 80 mg PO HS 06/06/21 06/06/21 SUMAtriptan succinate [Imitrex] 50 mg PO DAILY PRN 06/06/21 06/06/21 Previous Rx's Medication Instructions Recorded Albuterol Inhaler [Ventolin Hfa 2 puff INHALATION RT-QID PRN #1 06/07/21 Inhaler] inhaler Budesonide-Formot 160-4.5 Mcg 2 puff INHALATION BID #1 inhaler 06/07/21 [Symbicort 160-4.5 Mcg Inhaler] lamoTRIgine [LaMICtal] 75 mg PO BID #60 tab 06/07/21 Apixaban [Eliquis] 5 mg PO BID #40 tab 07/21/24 Diltiazem Oral [Cardizem Oral] 30 mg PO QID #60 tab 07/21/24 Allergies Allergy/AdvReac Type Severity Reaction Status Date / Time Penicillins Allergy Unknown Verified 07/21/24 11:53 Review of Systems ROS Statement: Those systems with pertinent positive or pertinent negative responses have been documented in the HPI. ROS Other: All systems not noted in ROS Statement are negative. Past Medical History Past Medical History: Atrial Fibrillation, Hyperlipidemia, Seizure Disorder, Thyroid Disorder Additional Past Medical History / Comment(s): bells palsy, brain aneurysm, chronic migraines, first seizure 2012 History of Any Multi-Drug Resistant Organisms: None Reported Past Surgical History: Orthopedic Surgery Additional Past Surgical History / Comment(s): forearm surgery Past Anesthesia/Blood Transfusion Reactions: No Reported Reaction Past Psychological History: No Psychological Hx Reported Smoking Status: Current every day smoker Past Alcohol Use History: None Reported Past Drug Use History: Marijuana - Past Family History Mother Family Medical History: CVA/TIA Father Family Medical History: Myocardial Infarction (DC) General Exam Limitations: no limitations General appearance: alert, in no apparent distress, anxious Head exam: Present: atraumatic, normocephalic, normal inspection Eye exam: Present: normal appearance, PERRL, EOMI. Absent: scleral icterus, conjunctival injection, periorbital swelling ENT exam: Present: normal exam, mucous membranes moist Neck exam: Present: normal inspection. Absent: tenderness, meningismus, lymphadenopathy Respiratory exam: Present: normal lung sounds bilaterally. Absent: respiratory distress, wheezes, rales, rhonchi, stridor Cardiovascular Exam: Present: regular rate, normal rhythm, normal heart sounds. Absent: systolic murmur, diastolic murmur, rubs, gallop, clicks GI/Abdominal exam: Present: soft, normal bowel sounds. Absent: distended, tenderness, guarding, rebound, rigid Extremities exam: Present: normal inspection, full ROM, normal capillary refill. Absent: tenderness, pedal edema, joint swelling, calf tenderness Back exam: Present: normal inspection Neurological exam: Present: alert, oriented X3, CN II-XII intact Psychiatric exam: Present: normal affect, normal mood Skin exam: Present: warm, dry, intact, normal color. Absent: rash Course Vital Signs 08/02/24 08/02/24 18:54 22:14 Temperature 98.1 F Pulse Rate 72 85 Respiratory 18 16 Rate Blood Pressure 113/86 135/85 O2 Sat by Pulse 92 L 98 Oximetry - Reevaluation(s) Reevaluation #1: 08/02/24 20:51 Medical records reviewed Reevaluation #2: 08/02/24 20:51 Symptoms unchanged Reevaluation #3: 08/02/24 20:51 Patient informed of results and questions answered Reevaluation #4: Was pt. sent in by a medical professional or institution ([facility], [facility], urgent care, hospital, or [facility]...) When possible be specific @ -no Did you speak to anyone other than the patient for history (EMS, parent, family, police, friend...)? What history was obtained from this source @ -no Did you review nursing and triage notes (agree or disagree)? Why? @ -agree Are old charts reviewed (outside hosp., previous admission, EMS record, old EKG, old radiological studies, urgent care reports/EKG's, [facility] records)? Report findings @ -yes Differential Diagnosis (chest pain, altered mental status, abdominal pain women, abdominal pain men, vaginal bleeding, weakness, fever, dyspnea, syncope, headache, dizziness, GI bleed, back pain, seizure, CVA, palpatations, mental health, musculoskeletal)? @ -prior EKG interpreted by me (3pts min.). @ -yes X-rays interpreted by me (1pt min.). @ -yes negative for acute disease CT interpreted by me (1pt min.). @ -no U/S interpreted by me (1pt. min.). @ -no What testing was considered but not performed or refused? (CT, X-rays, U/S, labs)? Why? @ -none What meds were considered but not given or refused? Why? @ -none Did you discuss the management of the patient with other professionals (professionals i.e. [facility], [facility], lab, RT, psych nurse, renal social worker, professor of communication, teacher, truant officer, case management coordinator)? Give summary @ -no Was smoking cessation discussed for >3mins.? @ -no Was critical care preformed (if so, how long)? @ -no Were there social determinants of health that impacted care today? How? (Homelessness, low income, unemployed, alcoholism, drug addiction, tr ansportation, low edu. Level, literacy, decrease access to med. care, [facility], rehab)? @ -none Was there de-escalation of care discussed even if they declined (Discuss DNR or withdrawal of care, Hospice)? DNR status @ -no What co-morbidities impacted this encounter? (DM, HTN, Smoking, COPD, CAD, Canc er, CVA, ARF, Chemo, Hep., AIDS, mental health diagnosis, sleep apnea, morbid obesity)? @ -none Was patient admitted / discharged? Hospital course, mention meds given and route, prescriptions, significant lab abnormalities, going to OR and other pertinent info. @ - 64 male for weakness. Patient thinks his back in atrial fibrillation with RVR he is not vital signs normal and stable patient feels well can be discharged home Discharge Undiagnosed new problem with uncertain prognosis? @ -no Drug Therapy requiring intensive monitoring for toxicity (Heparin, Nitro, Insulin, Cardizem)? @ -no Were any procedures done? @ -no Diagnosis/symptom? @ -A-fib with RVR Acute, or Chronic, or Acute on Chronic? @ -Acute Uncomplicated (without systemic symptoms) or Complicated (systemic symptoms)? @ -Complicated Side effects of treatment? @ -no Exacerbation, Progression, or Severe Exacerbation? @ -exacerbation Poses a threat to life or bodily function? How? (Chest pain, USA, DC, pneumonia, PE, COPD, DKA, ARF, appy, cholecystitis, CVA, Diverticulitis, Homicidal, Suicidal, threat to staff... and all critical care pts) @ -yes arrhythmia Reevaluation #5: Differential Weakness: Hypoglycemia, shock, sepsis, hyponatremia, anemia, infection, DC, ETOH, adverse medicine reaction, overdose, stroke, this is not meant to be an all-inclusive list. EKG Findings - EKG Comments: EKG Findings:: EKG is sinus 71 AK 154 QRS 110 QTc 404 - EKG Results: EKG: interpreted by ANNE Medical Decision Making - Medical Decision Making 64 male for weakness. Patient thinks his back in atrial fibrillation with RVR he is not vital signs normal and stable patient feels well can be discharged home - Lab Data Result diagrams: 08/02/24 19:31 08/02/24 19:31 Lab Results 08/02/24 08/02/24 08/02/24 Range/Units 19:31 19:31 19:31 WBC 8.0 (3.8-10.6) k/uL RBC 5.50 (4.30-5.90) m/uL Hgb 17.0 (13.0-17.5) gm/dL Hct 52.3 (39.0-53.0) % MCV 95.1 (80.0-100.0) fL MCH 30.9 (25.0-35.0) pg MCHC 32.4 (31.0-37.0) g/dL RDW 13.4 (11.5-15.5) % Plt Count 238 (150-450) k/uL MPV 8.0 Neutrophils % 61 % Lymphocytes % 23 % Monocytes % 10 % Eosinophils % 3 % Basophils % 1 % Neutrophils # 4.9 (1.3-7.7) k/uL Lymphocytes # 1.8 (1.0-4.8) k/uL Monocytes # 0.8 (0-1.0) k/uL Eosinophils # 0.2 (0-0.7) k/uL Basophils # 0.0 (0-0.2) k/uL PT 11.0 (10.0-12.5) sec INR 1.0 (<1.2) APTT 25.5 (22.0-30.0) sec Sodium 138 (137-145) mmol/L Potassium 4.8 (3.5-5.1) mmol/L Chloride 107 (98-107) mmol/L Carbon Dioxide 26 (22-30) mmol/L Anion Gap 5 mmol/L BUN 24 H (9-20) mg/dL Creatinine 1.49 H (0.66-1.25) mg/dL Est GFR (CKD-EPI)AfAm 58 (>60 ml/min/1.73 sqM) Est GFR (CKD-EPI)NonAf 50 (>60 ml/min/1.73 sqM) Glucose 105 H (74-99) mg/dL Plasma Lactic Acid Clark (0.7-2.0) mmol/L Calcium 10.3 H (8.4-10.2) mg/dL Phosphorus 4.2 (2.5-4.5) mg/dL Magnesium 2.2 (1.6-2.3) mg/dL Total Bilirubin 0.6 (0.2-1.3) mg/dL AST 22 (17-59) U/L ALT 17 (4-49) U/L Alkaline Phosphatase 84 (38-126) U/L Troponin I (0.000-0.034) ng/mL NT-Pro-B Natriuret Pep 717 pg/mL Total Protein 6.6 (6.3-8.2) g/dL Albumin 4.0 (3.5-5.0) g/dL TSH 0.025 L (0.465-4.680) mIU/L 08/02/24 08/02/24 Range/Units 19:31 19:31 WBC (3.8-10.6) k/uL RBC (4.30-5.90) m/uL Hgb (13.0-17.5) gm/dL Hct (39.0-53.0) % MCV (80.0-100.0) fL MCH (25.0-35.0) pg MCHC (31.0-37.0) g/dL RDW (11.5-15.5) % Plt Count (150-450) k/uL MPV Neutrophils % % Lymphocytes % % Monocytes % % Eosinophils % % Basophils % % Neutrophils # (1.3-7.7) k/uL Lymphocytes # (1.0-4.8) k/uL Monocytes # (0-1.0) k/uL Eosinophils # (0-0.7) k/uL Basophils # (0-0.2) k/uL PT (10.0-12.5) sec INR (<1.2) APTT (22.0-30.0) sec Sodium (137-145) mmol/L Potassium (3.5-5.1) mmol/L Chloride (98-107) mmol/L Carbon Dioxide (22-30) mmol/L Anion Gap mmol/L BUN (9-20) mg/dL Creatinine (0.66-1.25) mg/dL Est GFR (CKD-EPI)AfAm (>60 ml/min/1.73 sqM) Est GFR (CKD-EPI)NonAf (>60 ml/min/1.73 sqM) Glucose (74-99) mg/dL Plasma Lactic Acid Clark 0.9 (0.7-2.0) mmol/L Calcium (8.4-10.2) mg/dL Phosphorus (2.5-4.5) mg/dL Magnesium (1.6-2.3) mg/dL Total Bilirubin (0.2-1.3) mg/dL AST (17-59) U/L ALT (4-49) U/L Alkaline Phosphatase (38-126) U/L Troponin I <0.012 (0.000-0.034) ng/mL NT-Pro-B Natriuret Pep pg/mL Total Protein (6.3-8.2) g/dL Albumin (3.5-5.0) g/dL TSH (0.465-4.680) mIU/L - EKG Data -: EKG Interpreted by Me Disposition Clinical Impression: Weakness Disposition: HOME SELF-CARE Condition: Good Instructions (If sedation given, give patient instructions): Weakness (ED) Is patient prescribed a controlled substance at d/c from ED?: No Referrals: [facility],Clinic [Primary Care Provider] - 1-2 days Time of Disposition: 21:25
[2024-08-02] MEDS: SODIUM CHLORIDE 0.9% 1,000 ML IV STA (20:07)
[2024-08-02 20:18] LABS: Basophils % (A) 1 %; Eosinophils # (A) 0.2 k/uL (0-0.7); Eosinophils % (A) 3 %; HCT 52.3 % (39.0-53.0); Lymphocytes # (A) 1.8 k/uL (1.0-4.8); Lymphocytes % (A) 23 %; MCH 30.9 pg (25.0-35.0); MCHC 32.4 g/dL (31.0-37.0); MCV 95.1 fL (80.0-100.0); Monocytes # (A) 0.8 k/uL (0-1.0); Monocytes % (A) 10 %; Neutrophils # (A) 4.9 k/uL (1.3-7.7); Neutrophils % (A) 61 %; Platelet Count 238 k/uL (150-450); RDW 13.4 % (11.5-15.5)
[2024-08-02 20:36] LABS: ALT 17 U/L (4-49); AST 22 U/L (17-59); African American GFR (CKD) 58 (>60 ml/min/1.73 sqM); Alkaline Phosphatase 84 U/L (38-126); Anion Gap 5 mmol/L; Blood Urea Nitrogen 24 mg/dL (9-20); Calcium 10.3 mg/dL (8.4-10.2); Carbon Dioxide 26 mmol/L (22-30); Chloride 107 mmol/L (98-107); Glucose 105 mg/dL (74-99); Magnesium 2.2 mg/dL (1.6-2.3); Non-African American GFR(CKD) 50 (>60 ml/min/1.73 sqM); Phosphorus 4.2 mg/dL (2.5-4.5); Potassium 4.8 mmol/L (3.5-5.1); Sodium 138 mmol/L (137-145); Total Bilirubin 0.6 mg/dL (0.2-1.3); Total Protein 6.6 g/dL (6.3-8.2)
[2024-08-02 20:40] LABS: NT-Pro-B-Type Natriuretic Pept 717 pg/mL
[2024-08-02 20:45] LABS: Partial Thromboplastin Time 25.5 sec (22.0-30.0)
[2024-08-02 22:15] VITALS: BP 135/85; PULSE 85; RESP 16
== END 2024-08-02 22:00 | disposition home or self-care (01) ==
LOC: EC 18:53
CPT/HCPCS: 36415; 80053; 83605; 83735; 83880; 84100; 84443; 84484; 85025; 85610; 85730; 93005

== ENCOUNTER 2024-10-14 10:01 | Day surgery (SDC) | payer OTHER ==
[~2024-10-14 10:01] MED LIST: ALPRAZolam 0.25 MG TAB PO PRN; ALPRAZolam 0.5 MG TAB PO PRN; HEPARIN SODIUM,PORCINE (1 ML) 2,500 UNIT in SODIUM CHLORIDE 0.9% 250 ML IRRIGATION PRN; HEPARIN SODIUM,PORCINE 10,000 UNIT in SODIUM CHLORIDE 0.9% 1,000 ML IRRIGATION PRN; NITROGLYCERIN SL TABS 0.4 MG TAB SUBLINGUAL PRN
[2024-10-14] MEDS: ATORVASTATIN 80 MG TAB PO STA (10:23)
[2024-10-14] MEDS: SODIUM CHLORIDE 0.9% 1,000 ML in EMPTY BAG 1 BAG IV SCH (10:23)
[2024-10-14] MEDS: ASPIRIN 325 MG TAB PO STA (10:28)
[2024-10-14] MEDS: IV FLUID CONTINUATION 1,000 ML IV ONE (10:42)
[2024-10-14] MEDS: MIDAZOLAM 2 MG/2 ML VIAL IVP ONE (12:00)
[2024-10-14] MEDS: fentaNYL (PF) 50 MCG/ML 2 ML AMP IVP ONE (12:00)
[2024-10-14] MEDS: LIDOCAINE 1% INJ 10MG/ML (20 ML MDV) SQ ONE (12:02)
[2024-10-14] MEDS: VERAPAMIL SYRINGE (5 MG/10 ML) INTRAARTER ONE (12:04)
[2024-10-14] MEDS: HEPARIN SODIUM 1,000 UN/ML (10ML VL) IVP ONE ×2 (12:12→12:47)
--- NOTE | 2024-10-14 12:45 | P.CARDCATH ---
Date of Procedure: 10/14/24 Description of Procedure: DIAGNOSTIC CORONARY ANGIOGRAPHY and LEFT HEART CATH REPORT PROCEDURES PERFORMED: Left heart catheterization Selective coronary angiography Moderate conscious sedation 21 mins Right radial access INDICATION: Cardiomyopathy, abnormal stress test, dyspnea on exertion 64-year-old with past medical history of smoking, COPD, hypertension, presented to cardiology office with symptoms of substernal chest pressure along with shortness of breath. He had echocardiogram showed EF of 45% with inferior wall hypokinesia. He had a treadmill stress test which patient could not complete and achieve 85% maximum heart rate because of shortness of breath and chest pressure symptoms. For this he was scheduled for a heart catheterization procedure. CONSENT: I have explained the procedural steps of above-mentioned procedures in layman's terms to the patient. I discussed the risks (including but not limited to stroke, emergent vascular or cardiac surgery or ), benefits and alternative therapies for the above-mentioned procedure. I discussed the risks of sedation/analgesia and blood product administration (if indicated). The patient has indicated understanding and acceptance of these risks. Conscious Sedation: Patient's ECG, heart rate, blood pressure, pulse oximetry were monitored throughout the duration of procedure under my direct supervision. 1 mg Versed and 50 mcg Fentanyl were used for induction of moderate conscious sedation. Total duration of moderate conscious sedation 21 minutes. PROCEDURE: After explaining the risks, benefits and alternatives of the above mentioned procedures in detail to the patient, informed consent was obtained. Patient was taken to the catheterization lab, prepped and draped in usual sterile fashion using universal precuations. Ultrasound was used to identify the radial artery. 1% lidocaine was infiltrated over the right radial artery. A 6-Persian sheath was placed and secured in the right radial artery using modified Seldinger technique. The sheath was flushed and 5 mg verapamil was administered intra-arterially. J tipped wire was advanced under fluoroscopic guidance. Once the wire tip reach ed aortic root 4500 units of IV heparin was given. Over the wire JR4 diagnostic catheter was advanced. The wire in place the catheter was manipulated to cross the aortic valve and entered into LV under fluoroscopy guidance. The wire was removed and the catheter was flushed. LV pressures were obtained and pullback was performed under fluoroscopy. Catheter was manipulated to selectively engage the right coronary ostium. Right coronary angiography was performed in different angiographic projections. The JR4 diagnostic catheter was exchanged for a JL 3.5 diagnostic catheter over the J-wire. The wire was removed, catheter was flushed and manipulated under fluoroscopy to selectively engaged the left coronary ostium. Left coronary angioplasty was performed in different angiographic projections. Catheter was removed over the wire. Radial sheath was flushed. The right radial sheath was removed and a TR band was placed with excellent patent hemostasis was achieved. The patient tolerated the procedure well. Patient was transported back to the post catheterization holding area in stable condition. Angiographic images were reviewed in detail. HEMODYNAMICS: Aortic Pressure: 116/68 mmHg. LV pressure: 116/8 mmHg. LVEDP 20 mmHg. There was no significant gradient across the aortic valve. SELECTIVE CORONARY ARTERIOGRAPHY: LEFT MAIN: The left main is short and large caliber vessel. It bifurcates into the LAD and circumflex. Left main appears angiographically normal. LEFT ANTERIOR DESCENDING CORONARY ARTERY: LAD is a large caliber vessel which wraps around to the apex. Proximal mid and distal LAD appears angiographically patent with mild luminal irregularities. Proximal LAD gives rise to a medium caliber long diagonal branch which is otherwise patent. It has mild mid irregularities. LEFT CIRCUMFLEX CORONARY ARTERY: It is nondominant vessel. Proximal LCx is patent. Mid LCx has calcific 85 to 90% stenosis. Just after the stenosis, LCx trifurcates into a small caliber OM1 branch, large caliber OM 2 branch and a small AV groove branch. OM1, OM 2 and AV groove branch appears angiographically patent. RIGHT CORONARY ARTERY: Dominant vessel. 100% chronically total occlusion in proximal segment. [id number] collaterals fill PDA and PL branch retrogradely. Faint right sided bridging collateral fills the RV marginal branch. IMPRESSION: 85 to 90% calcific stenosis in mid LCx, FABIO-3 flow 100% MAJOR ACCOUNT REPRESENTATIVE of proximal RCA, [id number] collaterals Mildly elevated LVEDP PLAN: Plan for PCI of mid LCx Further recommendations to follow Performing Physician Fili Barajas MD, FACC, RPVI Thank you for allowing [facility] to participate in this patient's care. Feel free to reach out in case of any followup questions.
[2024-10-14] MEDS: TICAGRELOR 90 MG TAB PO ONE (12:49)
[2024-10-14] MEDS: IOPAMIDOL-370 100ML BTL INJ ONE (13:14)
[2024-10-14] MEDS ORDERED: SUMAtriptan succinate 50 MG TAB PO PRN (13:15)
[2024-10-14] MEDS ORDERED: ALBUTEROL NEBULIZED 2.5 MG/3 ML INHALATION PRN (13:15)
[2024-10-14] MEDS ORDERED: ATROPINE SULFATE 0.1 MG/ML 10ML SYRINGE IV PRN (13:19)
[2024-10-14] MEDS ORDERED: ZOLPIDEM 5 MG TAB PO PRN (13:19)
[2024-10-14] MEDS ORDERED: RX INFO: IV CONTRAST WAS GIVEN 1 EACH MISC MISCELLANE PRN (13:19)
[2024-10-14] MEDS ORDERED: MAG HYDROX/AL HYDROX/SIMETH 30 ML CUP PO PRN (13:19)
[2024-10-14] MEDS: SODIUM CHLORIDE 0.9% 1,000 ML IV SCH (15:25)
[2024-10-14] MEDS: DILTIAZEM CD 120 MG CAP.ER.24H PO SCH (16:46)
[2024-10-14 17:20] VITALS: RESP 14; TEMP 97.5
[2024-10-14] MEDS ORDERED: DILTIAZEM ORAL 30 MG TAB PO SCH (18:00)
[2024-10-14] MEDS: SYMBICORT 160-4.5 MCG INHALER INHALATION SCH (18:08)
[2024-10-14 18:16] VITALS: BP 144/74; PULSE 62
--- NOTE | 2024-10-14 20:36 | P.PCN ---
Date of Procedure: 10/14/24 Operative Findings: Percutaneous coronary intervention Performing physician Frederick Hardy MD Procedure performed Successful stenting of the mid LCx using 4.5 x 33 mm Xience MARIANA with an excellent angiographic results and reduction of stenosis from 80% to 0% Indication Asymptomatic 64-year-old gentleman who underwent a heart catheterization by Dr. Barajas and was found to have severe disease involving the LCx Approach Right radial artery Complication None Level of sedation Moderate with sedation length of 35 minutes Procedure description Please refer to diagnostic heart catheterization was performed earlier by Dr. Barajas. Anticoagulation was initiated using heparin with continuous ACT monitoring. Subsequently attempting engaging the left main using an EBU 3.75 guide was unsuccessful but was successful using an XB 3 5 guiding catheter. Subsequently I wired the LCx from the get go using a Runthrough wire and whisper wire. Balloon angioplasty was performed using 3.5 mm balloon before I deployed 4.5 x 33 mm Xience MARIANA where the stent was positioned under fluoroscopy guidance and deployed under fluoroscopy guidance. Postdilatation was performed using 4.5 mm noncompliant balloon with an angiogram showing excellent angiographic results. The procedure was completed with no complication Postprocedure management Dual antiplatelet therapy using aspirin and Brilinta Aggressive cholesterol control Risk factors modification Follow-up with the patient
[2024-10-14] MEDS ORDERED: ATORVASTATIN 40 MG TAB PO SCH (21:00)
[2024-10-14] MEDS ORDERED: APIXABAN 5 MG TAB PO SCH (21:00)
[2024-10-14] MEDS ORDERED: PRAVASTATIN SODIUM 80 MG TAB PO SCH (21:00)
[2024-10-14] MEDS ORDERED: TICAGRELOR 90 MG TAB PO SCH (21:00)
[2024-10-14] MEDS ORDERED: lamoTRIgine 25 MG TAB PO SCH (21:00)
[2024-10-15] MEDS ORDERED: LEVOTHYROXINE 125 MCG TAB PO SCH (06:30)
[2024-10-15] MEDS ORDERED: LEVOTHYROXINE 25 MCG TAB PO SCH (06:30)
[2024-10-15] MEDS ORDERED: APIXABAN 2.5 MG TABLET PO SCH (09:00)
[2024-10-15] MEDS ORDERED: ASPIRIN 81 MG PO SCH (09:00)
[2024-10-15] MEDS ORDERED: CHOLECALCIFEROL 25 MCG (1000 IU) TABLET PO SCH (09:00)
== END 2024-10-14 19:02 | disposition home or self-care (01) ==
LOC: CATHCVL 10:01 → 6NMEDSUR 14:14 → CATHCVL 19:02
PROVIDERS: ATTEND Student in an Organized Health Care Education/Training Program
DX: I25.10 Atherosclerotic heart disease of native coronary artery without angina pectoris (principal); I42.9 Cardiomyopathy, unspecified; I48.0 Paroxysmal atrial fibrillation; I45.10 Unspecified right bundle-branch block; E03.9 Hypothyroidism, unspecified; E78.5 Hyperlipidemia, unspecified; I12.9 Hypertensive chronic kidney disease with stage 1 through stage 4 chronic kidney disease, or unspecified chronic kidney disease; N18.9 Chronic kidney disease, unspecified; J44.9 Chronic obstructive pulmonary disease, unspecified; G40.909 Epilepsy, unspecified, not intractable, without status epilepticus; Z87.891 Personal history of nicotine dependence; Z88.0 Allergy status to penicillin; Z79.01 Long term (current) use of anticoagulants; Z79.890 Hormone replacement therapy; Z79.899 Other long term (current) drug therapy
CPT/HCPCS: 93458; 99152; C9600; J2250; J2003; J3010; J1644; Q9967